=== PATIENT | female | born 1985 | race Two or more races ===

== ENCOUNTER → 2024-05-04 | Outpatient (CLI) | payer OTHER, SELFPAY ==
--- NOTE | 2024-05-04 08:51 | XR_ITS ---
Examination: Abdomen sonogram, complete Date and time of exam: May 04, 2024 0909 hrs. Indications: Recurrent abdominal pain beginning 2 months ago. Technique: Multiple real-time grayscale transabdominal sonographic images of the abdomen have been obtained. Findings: 4.2 cm gallstone Gallbladder wall 0.2 cm no edema Common bile duct 0.2 cm Pancreatic head 2.5 cm Aorta not enlarged Liver 18.2 cm fatty texture smooth contour no focal liver lesions Normal hepatopedal portal venous flow Patent IVC Right kidney 11.2 x 6.1 x 6.1 cm cortex 1.6 cm Left kidney 12.2 x 6.4 x 6.1 cm renal cortex 2.1 cm No hydronephrosis Mild left renal parenchymal scar formation Spleen 9.8 cm Impression: Cholelithiasis, negative for cholecystitis Mild hepatomegaly fatty liver Mild left renal parenchymal scar formation, no hydronephrosis
== END | disposition home or self-care (01) ==
LOC: CDIM 08:22
PROVIDERS: Referring Provider Student in an Organized Health Care Education/Training Program; Visit Provider Student in an Organized Health Care Education/Training Program
DX: K80.20 Calculus of gallbladder without cholecystitis without obstruction (principal); K76.0 Fatty (change of) liver, not elsewhere classified; N28.89 Other specified disorders of kidney and ureter
CPT/HCPCS: 76700